=== PATIENT | female | born 2000 | race Caucasian/White ===

== ENCOUNTER 2020-02-26 22:10 | Emergency (ER) | payer BC ==
[~2020-02-26] VITALS: Ht 170.2 cm; Wt 72.7 kg
[2020-02-26 22:13] VITALS: BP 123/71
[2020-02-26] MEDS ORDERED: LIDOcaine 1% W/epiNEPHrine 1:200,000 10ml vial IJ ONE (22:55)
[2020-02-26] MEDS ORDERED: bacitracin 15gm ointment TP ONE (22:55)
== END 2020-02-26 23:43 | disposition home or self-care (01) ==
LOC: ER 22:11
DX: S61.213A Laceration without foreign body of left middle finger without damage to nail, initial encounter (principal); W26.0XXA Contact with knife, initial encounter; Y93.89 Activity, other specified; Y92.89 Other specified places as the place of occurrence of the external cause; Y99.8 Other external cause status
CPT/HCPCS: 12001; 99282